=== PATIENT | male | born 1960 | race Caucasian/White ===

== ENCOUNTER 2025-01-30 12:19 | Emergency (ER) | payer SELFPAY ==
[2025-01-30] MEDS ORDERED: NA CHLORIDE 0.9% 1,000 ML ONE (13:14)
[2025-01-30 13:25] LABS: RBC Red Blood Cell Count 4.55 M/uL (4.33-5.43); White Blood Count 6.90 thou/uL (4.3-10.9)
[2025-01-30 13:26] LABS: Absolute Lymphocytes (CBC) 1.2 K/uL (0.7-4.9); Hematocrit 40.9 % (39.6-49.0); Hemoglobin 13.8 g/dL (13.6-17.9); MCH 30.2 pg (27.0-35.0); MCHC 33.7 g/dL (32.0-36.0); MCV 89.8 fL (80-100); MPV 7.3 fL (7.6-11.3); Nucleated RBC Absolute Count 0.0 (0-0); Nucleated Red Blood Cells % 0.0 % (0-0)
[2025-01-30 13:29] LABS: PT Prothrombin Time 11.8 SECONDS (10-13.0); Protime INR 1.05
[2025-01-30 13:40] LABS: ALT/SGPT 19 U/L (16-61); AST/SGOT 16 U/L (15-37); Albumin 3.4 g/dL (3.4-5.0); Albumin/Globulin Ratio 1.1 (1.1-1.8); Alkaline Phosphatase 88 U/L (45-117); Anion Gap 5.9 mEq/L (5.0-15.0); BUN Blood Urea Nitrogen 22 mg/dL (7-18); Globulin 3.1 g/dL (2.3-3.5); Glucose Level 95 mg/dL (74-106); Magnesium 2.0 mg/dL (1.6-2.4); NT PRO-BNP 119 pg/mL (<125); Potassium 3.9 mEq/L (3.5-5.1); Troponin High Sensitivity 4.6 pg/mL (<58.9)
[2025-01-30 13:42] LABS: Bilirubin Indirect, Calculated 0.3 mg/dL (0.2-0.8)
--- NOTE | 2025-01-30 14:03 | RAD REPORT ---
EXAMINATION: CT Abdomen Pelvis W Contrast CLINICAL INDICATION: Male, 64 years old. hematuria , flank pain;Abd pain TECHNIQUE: CT abdomen and pelvis was performed, after the administration of IV contrast, as per [facility] protocol. Axial, sagittal and coronal reconstructions were obtained. One or more of the following dose reduction techniques were used: Automated exposure control, adjustment of the mA and k V according to patient size, and iterative reconstruction. Unless otherwise specified, incidental findings do not require dedicated imaging follow-up. COMPARISON: No prior exam. FINDINGS: LOWER CHEST: The visualized lung bases are clear. LIVER: Normal in size and contour. No focal lesion. BILIARY SYSTEM: Contracted gallbladder limiting evaluation with small radiodense calculus at the fund us. No suspicious abnormalities. SPLEEN: Normal size. No focal lesion. PANCREAS: No mass, ductal dilation, or kory-pancreatic fluid. ADRENALS: Normal; no mass. KIDNEYS: Normal size and contour. Small cortical fluid density lesions bilaterally, largest on the le ft near the upper pole measuring 1.4 cm. Punctate focus of radiodensity in the left renal hilum favored to be vascular. No hydronephrosis. URINARY BLADDER: Unremarkable. GASTROINTESTINAL TRACT: No evidence of free air, significant intra-abdominal free fluid, bowel obstru ction or abscess. APPENDIX: Normal appendix. LYMPH NODES: No lymphadenopathy. MUSCULOSKELETAL: No acute or suspicious osseous abnormality. ADDITIONAL FINDINGS: Saccular aneurysm directed to the left arising from the infrarenal abdominal aor ta, with overall sac diameter 5.1 x 4.3 cm. Mural thrombus along the posterolateral wall of the aneurysm measuring 8 mm in thickness. Mild prostatomegaly. IMPRESSION: No hydroureteronephrosis. No radiopaque calculi identified along the urinary collecting systems. 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 Other incidental findings including cholelithiasis and prostatomegaly.
--- NOTE | 2025-01-30 14:27 | ER ---
Nurse's Notes [facility] Name: Nolan Flores Jr Age: 64 yrs Sex: Male : 1960 Arrival Date: 01/30/2025 Time: 12:19 Bed 5 Private MD: Diagnosis: Hypertension, right flank pain, stable infrarenal aortic aneurysm 5 cm Presentation: 01/30 12:37 Chief complaint: Patient states: blood in urine today and back pain. Pt also reports he aa5 ran out of home medications x 1-2 months ago. 12:37 Coronavirus screen: At this time, the client does not indicate any symptoms associated aa5 with coronavirus-19. Ebola Screen: Patient denies travel to an Ebola-affected area in the 21 days before illness onset. Initial Sepsis Screen: Does the patient meet any 2 criteria? No. Patient's initial sepsis screen is negative. Does the patient have a suspected source of infection? No. Patient's initial sepsis screen is negative. Risk Assessment: Do you want to hurt yourself or someone else? Patient reports no desire to harm self or others. Onset of symptoms was January 30, 2025. 12:37 Acuity: [place] 3 aa5 12:37 Method Of Arrival: Ambulatory aa5 Historical: - Allergies: 12:37 No Known Allergies; aa5 - Home Meds: 12:38 Unknown BP medication [Active]; venlafaxine 75 mg oral tablet daily [Active]; aa5 propranolol 40 mg Oral tablet daily for tremors [Active]; - PMHx: 12:38 Hypertensive disorder; Nerve damage to back; Back problems; tremors; aortic aneurysm; aa5 PTSD; Kidney stone; - PSHx: 12:38 Hernia; knee; aa5 - Immunization history:: Adult Immunizations unknown. - Infectious Disease History:: Denies. - Social history:: Smoking status: Patient reports the use of cigarette tobacco products. Screenin:45 [facility] ED Fall Risk Assessment (Adult) History of falling in the last 3 months, ph including since admission No falls in past 3 months (0 pts) Confusion or Disorientation No (0 pts) Intoxicated or Sedated No (0 pts) Impaired Gait No (0 pts) Mobility Assist Device Used No (0 pt) Altered Elimination No (0 pt) Score/Fall Risk Level 0 - 2 = Low Risk Oriented to surroundings, Maintained a safe environment, Hourly rounding (assess needs \T\ fall precautionary measures) done. 15:11 Abuse screen: Denies threats or abuse. Denies injuries from another. Nutritional ph screening: No deficits noted. Tuberculosis screening: No symptoms or risk factors identified. Assessment: 13:45 General: Appears in no apparent distress. comfortable, Behavior is calm, cooperative, ph appropriate for age. Pain: Complains of pain in anterior aspect of left lateral abdomen and posterior aspect of left lateral abdomen. Neuro: Level of Consciousness is awake, alert, obeys commands, Oriented to person, place, time, situation. Cardiovascular: Capillary refill < 3 seconds in bilateral fingers Patient's skin is warm and dry. Respiratory: Airway Respiratory effort is even, unlabored, Respiratory pattern is regular, symmetrical. GI: No signs and/or symptoms were reported involving the gastrointestinal system. : Reports blood in urine. Derm: Skin is pink, warm \T\ dry. Vital Signs: 12:37 BP 154 / 112; Pulse 89; Resp 16 S; Temp 98(TE); Pulse Ox 97% on R/A; Height 5 ft. 11 aa5 in. (R); 13:00 BP 153 / 86; Pulse 73; Resp 18; Pulse Ox 100% on R/A; ph 14:00 BP 144 / 73; Pulse 73; Resp 16; Pulse Ox 100% on R/A; ph 15:12 BP 124 / 71; Pulse 61; Resp 18; Pulse Ox 98% on R/A; ph ED Course: 12:23 Patient arrived in ED. im 12:23 Frankie Parson MD is Attending Physician. sp3 12:37 Arm band placed on Patient placed in an exam room, on a stretcher. aa5 12:38 Triage completed. aa5 13:05 Initial lab(s) drawn, by me, sent to lab. Inserted saline lock: 20 gauge in right ph forearm, using aseptic technique. Blood collected. Flushed with 10 mL NS. 13:25 CT Abd/Pelvis - IV Contrast Only In Process Unspecified. EDMS 13:37 Mariaelena De Oliveira, GE is Primary Nurse. db 13:45 Patient has correct armband on for positive identification. Bed in low position. Call ph light in reach. Side rails up X 1. Pulse ox on. NIBP on. Door closed. Noise minimized. 15:11 No provider procedures requiring assistance completed. IV discontinued, intact, ph bleeding controlled, No redness/swelling at site. Pressure dressing applied. Administered Medications: 13:33 Drug: NS 0.9% IV 500 ml 500 ml IV at 1 bolus once; to be given as a bolus over 30 ar8 minutes Volume: 500 ml; Route: IV; Rate: 1 bolus; Site: right forearm; 14:05 Follow up: Response: No adverse reaction; IV Status: Completed infusion; IV Intake: ph 500ml Medication: 15:12 VIS not applicable for this client. ph Intake: 14:05 IV: 500ml; Total: 500ml. ph Outcome: 14:26 Discharge ordered by MD. hannon 15:14 Discharged to home ambulatory, with friend, 15:14 Condition: good 15:14 Discharge instructions given to patient, Instructed on discharge instructions, follow up and referral plans. medication usage, Demonstrated understanding of instructions, follow-up care, medications, Prescriptions given X 1, 15:14 Patient left the ED. ph Signatures: Dispatcher [employer] EDSD Mattie Aggarwal RN RN aa5 Kandy Bloom RN RN ph Frankie Parson MD MD sp3 Mariaelena De Oliveira RN RN Jennifer Golden Andrea RN RN ar8 Corrections: (The following items were deleted from the chart) 12:41 12:37 Chief complaint: Patient states: blood in urine today and back pain. aa5 aa5
--- NOTE | 2025-01-30 14:27 | EDPHYS ---
Physician Documentation [facility] Name: Nolan Flores Jr Age: 64 yrs Sex: Male : 1960 Arrival Date: 01/30/2025 Time: 12:19 Bed 5 Private MD: ED Physician Frankie Parson HPI: 01/30 14:17 This 64 yrs old Male presents to ER via Ambulatory with complaints of Urinary Problem - sp3 blood in urine, Back Pain. 14:17 64-year-old male with history of hypertension, back problems, known aortic aneurysm sp3 infrarenal, who just moved to [place] from [place] now presents to the ED with chief complaint hematuria and right flank pain. He also states he has none of his hypertension medications. He denies any headache, neck pain, chest pain, shortness of breath, intra-abdominal pain, syncope, near syncope, numbness or tingling, or any other signs or symptoms on ROS at this time.. Historical: - Allergies: 12:37 No Known Allergies; aa5 - Home Meds: 12:38 Unknown BP medication [Active]; venlafaxine 75 mg oral tablet daily [Active]; aa5 propranolol 40 mg Oral tablet daily for tremors [Active]; - PMHx: 12:38 Hypertensive disorder; Nerve damage to back; Back problems; tremors; aortic aneurysm; aa5 PTSD; Kidney stone; - PSHx: 12:38 Hernia; knee; aa5 - Immunization history:: Adult Immunizations unknown. - Infectious Disease History:: Denies. - Social history:: Smoking status: Patient reports the use of cigarette tobacco products. ROS: 14:18 Eyes: Negative for injury, pain, redness, and discharge, ENT: Negative for injury, sp3 pain, and discharge, Cardiovascular: Negative for chest pain, palpitations, and edema, Respiratory: Negative for shortness of breath, cough, wheezing, and pleuritic chest pain, MS/Extremity: Negative for injury and deformity, Skin: Negative for injury, rash, and discoloration, Neuro: Negative for headache, weakness, numbness, tingling, and seizure, Psych: Negative for depression, anxiety, suicide ideation, homicidal ideation, and hallucinations, Allergy/Immunology: Negative for hives, rash, and allergies, Endocrine: Negative for neck swelling, polydipsia, polyuria, polyphagia, and marked weight changes, 14:18 All other systems are negative, Exam: 14:19 Constitutional: This is a well developed, well nourished patient who is awake, alert, sp3 and in no acute distress. Head/Face: Normocephalic, atraumatic. Eyes: Pupils equal round and reactive to light, extra-ocular motions intact. Lids and lashes normal. Conjunctiva and sclera are non-icteric and not injected. Cornea within normal limits. Periorbital areas with no swelling, redness, or edema. Neck: Trachea midline, no thyromegaly or masses palpated, and no cervical lymphadenopathy. Supple, full range of motion without nuchal rigidity, or vertebral point tenderness. No Meningismus. Chest/axilla: Normal chest wall appearance and motion. Nontender with no deformity. No lesions are appreciated. Cardiovascular: Regular rate and rhythm with a normal S1 and S2. No gallops, murmurs, or rubs. Normal PMI, no JVD. No pulse deficits. Respiratory: Lungs have equal breath sounds bilaterally, clear to auscultation and percussion. No rales, rhonchi or wheezes noted. No increased work of breathing, no retractions or nasal flaring. Abdomen/GI: Soft, non-tender, with normal bowel sounds. No distension or tympany. No guarding or rebound. No evidence of tenderness throughout. Skin: Warm, dry with normal turgor. Normal color with no rashes, no lesions, and no evidence of cellulitis. MS/ Extremity: Pulses equal, no cyanosis. Neurovascular intact. Full, normal range of motion. Neuro: Awake and alert, GCS 15, oriented to person, place, time, and situation. Cranial nerves II-XII grossly intact. Motor strength 5/5 in all extremities. Sensory grossly intact. Cerebellar exam normal. Normal gait. Psych: Awake, alert, with orientation to person, place and time. Behavior, mood, and affect are within normal limits. 14:19 Back: Mild right CVA tenderness, 14:22 ECG was reviewed by the Attending Physician. EKG demonstrates normal sinus rhythm at 70 sp3 bpm with multiple PACs in a bigeminy pattern. Vital Signs: 12:37 BP 154 / 112; Pulse 89; Resp 16 S; Temp 98(TE); Pulse Ox 97% on R/A; Height 5 ft. 11 aa5 in. (R); 13:00 BP 153 / 86; Pulse 73; Resp 18; Pulse Ox 100% on R/A; ph 14:00 BP 144 / 73; Pulse 73; Resp 16; Pulse Ox 100% on R/A; ph 15:12 BP 124 / 71; Pulse 61; Resp 18; Pulse Ox 98% on R/A; ph MDM: 12:39 Medical Screening Exam initiated sp3 14:20 Data reviewed: vital signs, nurses notes, lab test result(s), EKG, radiologic studies. sp3 ED course: 64-year-old male with PMH above now with right flank pain and hematuria. Differential diagnoses include UTI/pyelonephritis spectrum, kidney stone, AAA worsening, other colitis, other intra-abdominal pathology, among others. CT scan demonstrates 5 cm infrarenal aneurysm, no leak, and no kidney stone or ureteral stone. No UTI noted. Labs are all within normal limits. Patient in no acute distress resting comfortably. Will refill his blood pressure medication and safely discharge him home with outpatient follow-up with local PCP.. 01/30 12:41 Order name: Basic Metabolic Panel; Complete Time: 14:06 3 01/30 12:41 Order name: CBC with Diff; Complete Time: 14:06 3 01/30 12:41 Order name: LFT's; Complete Time: 14:06 sp3 01/30 12:41 Order name: Magnesium; Complete Time: 14:06 sp3 01/30 12:41 Order name: NT PRO-BNP; Complete Time: 14:06 3 01/30 12:41 Order name: PT-INR; Complete Time: 14:06 sp3 01/30 12:41 Order name: Troponin HS; Complete Time: 14:06 3 01/30 12:41 Order name: UA Rfx Jacky Cult if indicated sp3 01/30 12:41 Order name: CT Abd/Pelvis - IV Contrast Only; Complete Time: 14:06 3 01/30 12:41 Order name: Cardiac monitoring; Complete Time: 13:48 sp3 01/30 12:41 Order name: EKG - Nurse/Tech; Complete Time: 13:48 sp3 01/30 12:41 Order name: IV Saline Lock; Complete Time: 13:48 sp3 01/30 12:41 Order name: Labs collected and sent; Complete Time: 13:48 sp3 01/30 12:41 Order name: O2 Per Protocol; Complete Time: 12:45 sp3 01/30 12:41 Order name: O2 Sat Monitoring; Complete Time: 12:45 sp3 Administered Medications: 13:33 Drug: NS 0.9% IV 500 ml 500 ml IV at 1 bolus once; to be given as a bolus over 30 ar8 minutes Volume: 500 ml; Route: IV; Rate: 1 bolus; Site: right forearm; 14:05 Follow up: Response: No adverse reaction; IV Status: Completed infusion; IV Intake: ph 500ml Disposition Summary: 01/30/25 14:26 Discharge Ordered Notes: Location: Home sp3 Condition: Stable sp3 Diagnosis - Hypertension, right flank pain, stable infrarenal aortic aneurysm 5 cm sp3 Followup: sp3 - With: Private Physician - When: Upon discharge from the Emergency Department - Reason: Continuance of care Discharge Instructions: - Discharge Summary Sheet sp3 - Abdominal Aortic Aneurysm sp3 - Hypertension, Adult sp3 Forms: - Medication Reconciliation Form sp3 - Antibiotic Education sp3 - Prescription Opioid Use sp3 - Patient Portal Instructions sp3 - Leadership Thank You Letter sp3 Prescriptions: - Propranolol 40 mg Oral tablet - take 1 tablet ORAL route every 12 hours; 60 tablet; Refills: 0, Product sp3 Selection Permitted Signatures: Dispatcher [employer] EDMattie Finney, RN RN aa5 Frankie Parson MD MD sp3 Gautam Sykes RN RN ar8 Kandy Bloom RN ph Corrections: (The following items were deleted from the chart) 12:41 12:41 BASIC METABOLIC PANEL+C.LAB.BRZ ordered. EDMS EDMS 12:41 12:41 CBC+H.LAB.BRZ ordered. EDMS EDMS 12:41 12:41 HEPATIC FUNCTION+C.LAB.BRZ ordered. EDMS EDMS 12:41 12:41 MAGNESIUM+C.LAB.BRZ ordered. EDMS EDMS 12:41 12:41 PROBNP+C.LAB.BRZ ordered. EDMS EDMS 12:41 12:41 PROTIME (+INR)+COAG.LAB.BRZ ordered. EDMS EDMS 12:41 12:41 Troponin High Sensitivity+C.LAB.BRZ ordered. EDMS EDMS 12:41 12: UA Rfx Jacky Cult if indicated+U.LAB.BRZ ordered. EDMS EDMS 12: Abdomen Pelvis W Con+CT.RAD.BRZ ordered. EDMS EDMS
[2025-01-30 15:09] LABS: Sqamous Epithelial None Seen /HPF (None Seen); Urine Culture Reflex Order NOT NEEDED; Urine Microscopic Reflex YN ORDER UMIC
[2025-01-30 15:41] VITALS: TEMP 98
[2025-01-30 15:46] VITALS: BP 124/71; O2SAT 98
== END 2025-01-30 15:14 | disposition home or self-care (01) ==
LOC: ER 12:19
DX: I71.43 Infrarenal abdominal aortic aneurysm, without rupture (principal); I10 Essential (primary) hypertension
CPT/HCPCS: 36415; 74177; 80048; 80076; 81001; 83735; 83880; 84484; 85025; 85610; 93005; 96360; 99284; J7030; Q9967